=== PATIENT | female | born 1955 | race Asian ===

== ENCOUNTER 2021-04-28 21:12 | Emergency (ER) | payer OTHER, SELFPAY ==
--- NOTE | ~2021-04-28 | XR_ITS ---
EXAMINATION: XR ABDOMEN KUB CLINICAL INDICATION: Constipation COMPARISON: None TECHNIQUE: AP view of the abdomen. FINDINGS: Moderate volume of stool throughout the colon. No abnormally dilated bowel loop. Nonobstructive bowel pattern. Vascular calcification of the aorta. Marked levoscoliosis of lumbar spine and multilevel degenerative spondylosis. Status post right hip replacement. XR/XR KUB IMPRESSION: Moderate volume of stool throughout the colon. Nonobstructive bowel pattern.
[2021-04-28 21:21] VITALS: BP 160/100; BP 179/87; PULSE 70; PULSE 78; RESP 15; TEMP 37.5; O2SAT 96; O2SAT 97; BMI 18.8
[2021-04-28 23:21] LABS: MANUAL DIFF FLAG NO
[2021-04-28 23:22] LABS: Basophils Percent Auto 0.1 % (0-2); Eosinophils Percent Auto 0.1 % (0-4); Hematocrit 36.6 % (37-47); Hemoglobin 12.5 g/dl (12.0-16.0); Imm Gran Abs Auto 0.05 X10*3/uL (0.00-0.03); Imm Gran Pct Auto 0.4 % (0.0-0.4); Lymphocytes Absolute Auto 0.8 X10*3/uL (1.2-4.9); Lymphocytes Percent Auto 6.6 % (20-40); Mean Corpuscular HGB Conc 34.2 g/dl (31.0-35.0); Mean Corpuscular Hemoglobin 30.5 pg (27.0-33.0); Mean Corpuscular Volume 89.3 fL (80-98); Mean Platelet Volume 10.8 fL (9.4-12.3); Monocytes Absolute Auto 0.5 X10*3/uL (0.1-1.2); Monocytes Percent Auto 4.4 % (2-11); Neutrophils Absolute Auto 10.6 X10*3/uL (2.0-8.3); Neutrophils Percent Auto 88.4 % (45-73); Platelet Count 264 X10*3/uL (160-400); Red Cell Distribution Width 14.9 % (11.0-16.0)
--- NOTE | 2021-04-28 23:29 | ED_ITS ---
HPI - General Adult General Chief complaint: General Medical Stated complaint: General Med Time Seen by Provider: 04/28/21 22:48 Source: patient and EMS Mode of arrival: EMS History of Present Illness HPI narrative: 65-year-old female with a past medical history of major depressive disorder, PTSD, presenting to the ED from [facility] s/p having behavioral outburst. Patient reports she is very unhappy at [facility] and that is why she is here. Reports constipation, mild abdominal distension/discomfort, with last BM 1 week ago. Denies fever, chills, CP/SOB, cough, nausea/vomiting, dysuria/hematuria Related Data Home Medications Medication Instructions Recorded Confirmed aspirin 81 mg chewable tablet 81 mg PO DAILY 04/28/21 04/28/21 clonazepam 0.5 mg tablet 0.5 mg PO TID 04/28/21 04/28/21 dexamethasone 4 mg tablet 4 mg PO TID 04/28/21 04/28/21 (Decadron) docusate sodium 100 mg capsule 100 mg PO BID 04/28/21 04/28/21 (Colace) escitalopram oxalate 5 mg tablet 5 mg PO DAILY 04/28/21 04/28/21 (Lexapro) lisinopril 5 mg tablet 2.5 mg PO DAILY 04/28/21 04/28/21 meloxicam 15 mg tablet 15 mg PO DAILY 04/28/21 04/28/21 oxycodone 5 mg capsule 5 mg PO Q6H PRN 04/28/21 04/28/21 pantoprazole 40 mg tablet,delayed 40 mg PO BID 04/28/21 04/28/21 release (Protonix) polyethylene glycol 3350 17 17 g PO DAILY 04/28/21 04/28/21 gram/dose oral powder (Miralax) pregabalin 150 mg capsule (Lyrica) 150 mg PO TID 04/28/21 04/28/21 tizanidine 4 mg tablet 4 mg PO BID 04/28/21 04/28/21 Allergies Allergy/AdvReac Type Severity Reaction Status Date / Time No Known Allergies Allergy Unverified 04/28/21 22:57 Review of Systems Review of Systems: Constitutional: No Fever, No Chills, No Fatigue, No Malaise ENT/Mouth: No Ear Pain, No Nasal Congestion, No Sinus Pain, No sore throat Eyes: No Eye Pain, No Vision Changes Cardiovascular: No Chest Pain, No SOB, No Edema, No Palpitations Respiratory: No Cough, No Dyspnea Gastrointestinal: No Nausea, No Vomiting, No Diarrhea, + Constipation, +Abdominal pain Genitourinary: No Dysuria, No Urinary Frequency, No Hematuria Musculoskeletal: No joint pain, No Myalgias, No Joint Swelling Skin: No Skin Lesions, No rash Neuro: No Weakness, No Dizziness, No Headache Yes all other systems are reviewed and are negative [facility] Past Medical History Attestation statement: The following information was validated with the patient. Medical History (Updated 04/29/21 @ 01:56 by BELA Wolff) Major depressive disorder PTSD (post-traumatic stress disorder) Surgical History (Updated 04/28/21 @ 21:26 by Padmini Barr RN) Hip joint replacement status Social History Social History Advance Directives: No Advance Directives Information Provided: No Patient : No Physical Exam Vital Signs: Vital Signs: Last Vital Signs Temp 99.5 F 04/28/21 21:21 Pulse 78 04/28/21 21:21 Resp 15 04/28/21 21:21 BP 179/87 H 04/28/21 21:21 Pulse Ox 96 04/28/21 21:21 Body Mass Index 18.8 Const: General: cooperative, healthy appearing and no acute distress Orientation/consciousness: patient oriented x3 Limitations: no limitations HENMT: Head: Yes normal to inspection Ears: hearing grossly normal bilaterally General nose exam: Normal external nose present Face and sinus: Yes normal facial exam Eyes: General: appearance normal, both eyes and all related structures EOM: EOMs intact bilaterally Neck: Neck: Yes normal visual inspection and Yes no meningeal signs Resp: Effort & Inspection: normal respiratory effort Auscultation: clear to auscultation bilaterally, no rales, no rhonchi and no wheezes Cardio: Rate: regular rate Heart sounds: S1 normal heart sound present and S2 normal heart sound present GI: Inspection: Yes normal to inspection Palpation (GI): Soft to palpation, nontender, no guarding and not rigid Skin: Wounds: no wounds Neuro: General: patient oriented x3 and no meningeal signs Gait exam (Neuro): Normal gait present Extrem: General: Yes normal to inspection and Yes no pedal edema Course Course Course Narrative: -mild leukocytosis of 12, sodium low at 130 > likely from dehydration, 1 L IVF ordered. - BUN 23, labs otherwise unremarkable XR KUB IMPRESSION: Moderate volume of stool throughout the colon. Nonobstructive bowel pattern. > Senna ordered -0154--954 cc observed on bladder scan > patient successfully urinated on bedpan -0200--ED care transferred to Dr. Roblero pending UA, PT and Case management evaluation Medical Decision Making MDM Narrative Medical decision making narrative: 65-year-old female with a past medical history of major depressive disorder, PTSD, presenting to the ED from [facility] s/ having behavioral outburst. On exam VSS, NAD/well-appearing, physical exam as above. Rule out all infectious/metabolic etiology including SBO vs constipation. Will need case management/PT eval Plan: Labs, UA, KUB, PT/case management Lab Data Result diagrams: 04/28/21 23:16 04/28/21 23:16 Labs: Lab Results 04/28/21 04/28/21 04/28/21 Range/Units 23:16 23:16 23:16 WBC 12.0 H (4.8-10.8) X10*3/uL RBC 4.10 L (4.20-5.50) X10*6/uL Hgb 12.5 (12.0-16.0) g/dl Hct 36.6 L (37-47) % MCV 89.3 (80-98) fL MCH 30.5 (27.0-33.0) pg MCHC 34.2 (31.0-35.0) g/dl RDW 14.9 (11.0-16.0) % Plt Count 264 (160-400) X10*3/uL MPV 10.8 (9.4-12.3) fL Immature Gran % (Auto) 0.4 (0.0-0.4) % Neut % (Auto) 88.4 H (45-73) % Lymph % (Auto) 6.6 L (20-40) % [place] % (Auto) 4.4 (2-11) % Eos % (Auto) 0.1 (0-4) % Baso % (Auto) 0.1 (0-2) % Lymph # (Auto) 0.8 L (1.2-4.9) X10*3/uL [place] # (Auto) 0.5 (0.1-1.2) X10*3/uL Eos # (Auto) 0.0 (0.0-0.4) X10*3/uL Baso # (Auto) 0.0 (0.0-0.2) X10*3/uL Abs Immat Gran (auto) 0.05 H (0.00-0.03) X10*3/uL Absolute Neuts (auto) 10.6 H (2.0-8.3) X10*3/uL Absolute Nucleated RBC 0.000 (0.0-0.012) X10*3/uL Nucleated RBC % (auto) 0.0 (0.0-0.2) /100WBC Sodium 130 L (135-145) mmol/L Potassium 4.4 (3.3-5.1) mmol/L Chloride 100 (96-108) mmol/L Carbon Dioxide 19 L (22-29) mmol/L Anion Gap 15 (12-20) BUN 23 H (9-16) mg/dL Creatinine 0.82 (0.5-1.4) mg/dL Estim Creat Clear Calc 50.0 Estimated GFR > 60 Random Glucose 202 H (60-115) mg/dL Calcium 8.3 L (8.4-10.2) mg/dL Magnesium 2.3 (1.6-2.6) mg/dL Total Bilirubin 0.4 (0.0-1.0) mg/dL Direct Bilirubin < 0.2 (0.0-0.5) mg/dL AST 15 (5-31) U/L ALT 20 (0-31) U/L Alkaline Phosphatase 86 (39-117) U/L Total Protein 5.9 L (6.5-8.0) g/dL Albumin 3.7 (3.5-5.0) g/dL Lipase 53 (8-78) U/L Urine Color Urine Appearance Urine pH (5.0-8.0) Ur Specific [place] (1.005-1.025) Urine Protein (NEG-TRACE) MG/DL Urine Glucose (UA) (NEG) MG/DL Urine Ketones (NEG) MG/DL Urine Blood (NEG) Urine Nitrite (NEG) Ur Leukocyte Esterase (NEG) COVID-19 (KATHY) Negative (Negative) COVID-19 Clin Com See Note 04/29/21 Range/Units 02:00 WBC (4.8-10.8) X10*3/uL RBC (4.20-5.50) X10*6/uL Hgb (12.0-16.0) g/dl Hct (37-47) % MCV (80-98) fL MCH (27.0-33.0) pg MCHC (31.0-35.0) g/dl RDW (11.0-16.0) % Plt Count (160-400) X10*3/uL MPV (9.4-12.3) fL Immature Gran % (Auto) (0.0-0.4) % Neut % (Auto) (45-73) % Lymph % (Auto) (20-40) % [place] % (Auto) (2-11) % Eos % (Auto) (0-4) % Baso % (Auto) (0-2) % Lymph # (Auto) (1.2-4.9) X10*3/uL [place] # (Auto) (0.1-1.2) X10*3/uL Eos # (Auto) (0.0-0.4) X10*3/uL Baso # (Auto) (0.0-0.2) X10*3/uL Abs Immat Gran (auto) (0.00-0.03) X10*3/uL Absolute Neuts (auto) (2.0-8.3) X10*3/uL Absolute Nucleated RBC (0.0-0.012) X10*3/uL Nucleated RBC % (auto) (0.0-0.2) /100WBC Sodium (135-145) mmol/L Potassium (3.3-5.1) mmol/L Chloride (96-108) mmol/L Carbon Dioxide (22-29) mmol/L Anion Gap (12-20) BUN (9-16) mg/dL Creatinine (0.5-1.4) mg/dL Estim Creat Clear Calc Estimated GFR Random Glucose (60-115) mg/dL Calcium (8.4-10.2) mg/dL Magnesium (1.6-2.6) mg/dL Total Bilirubin (0.0-1.0) mg/dL Direct Bilirubin (0.0-0.5) mg/dL AST (5-31) U/L ALT (0-31) U/L Alkaline Phosphatase (39-117) U/L Total Protein (6.5-8.0) g/dL Albumin (3.5-5.0) g/dL Lipase (8-78) U/L Urine Color STRAW Urine Appearance HAZY Urine pH 6.0 (5.0-8.0) Ur Specific [place] <= 1.005 (1.005-1.025) Urine Protein NEG (NEG-TRACE) MG/DL Urine Glucose (UA) NEG (NEG) MG/DL Urine Ketones NEG (NEG) MG/DL Urine Blood TRACE (NEG) Urine Nitrite NEG (NEG) Ur Leukocyte Esterase 3+ H (NEG) COVID-19 (KATHY) (Negative) COVID-19 Clin Com Discharge Plan Discharge Clinical Impression: Constipation, Behavior concern Prescriptions: No Action meloxicam 15 mg Tablet 15 mg PO DAILY RF: 0 clonazepam 0.5 mg Tablet 0.5 mg PO TID RF: 0 pantoprazole [Protonix] 40 mg Tablet,Delayed Release (Dr/Ec) 40 mg PO BID RF: 0 dexamethasone [Decadron] 4 mg Tablet 4 mg PO TID RF: 0 oxycodone 5 mg Capsule 5 mg PO Q6H PRN (Reason: Pain (Scale Score 7-10)) RF: 0 docusate sodium [Colace] 100 mg Capsule 100 mg PO BID RF: 0 aspirin 81 mg Tablet,Chewable 81 mg PO DAILY RF: 0 lisinopril 5 mg Tablet 2.5 mg PO DAILY RF: 0 polyethylene glycol 3350 [Miralax] 17 gram/dose Powder 17 g PO DAILY RF: 0 tizanidine 4 mg Tablet 4 mg PO BID RF: 0 escitalopram oxalate [Lexapro] 5 mg Tablet 5 mg PO DAILY RF: 0 pregabalin [Lyrica] 150 mg Capsule 150 mg PO TID RF: 0
[2021-04-28 23:35] LABS: COVID-19 Test Negative (Negative); IDNOW Serial# 9DD0AD1C
--- NOTE | 2021-04-28 23:55 | PC.NURSE ---
PT REPORTS SHE NEEDS TO GO TO THE BATHROOM, AND NEEDS ASSISTANCE AND A WALKER TO AMBULATE. PT UNABLE TO SUPPORT WEIGHT AND UNABLE TO AMBULATE. PT UNABLE TO VOID, REPORTS SHE HAS NOT BEEN EATING OR DRINKING.
[2021-04-28 23:59] LABS: Alanine Aminotransferase 20 U/L (0-31); Albumin Level 3.7 g/dL (3.5-5.0); Alkaline Phosphatase 86 U/L (39-117); Anion Gap 15 (12-20); Aspartate Amino Transferase 15 U/L (5-31); Bilirubin Direct < 0.2 mg/dL (0.0-0.5); Bilirubin Total 0.4 mg/dL (0.0-1.0); Blood Urea Nitrogen 23 mg/dL (9-16); Calcium 8.3 mg/dL (8.4-10.2); Carbon Dioxide 19 mmol/L (22-29); Chloride 100 mmol/L (96-108); Estimated Glomerular Filt Rate > 60; Glucose Random 202 mg/dL (60-115); Lipase 53 U/L (8-78); Magnesium 2.3 mg/dL (1.6-2.6); Potassium 4.4 mmol/L (3.3-5.1); Sodium 130 mmol/L (135-145); Total Protein 5.9 g/dL (6.5-8.0)
--- NOTE | 2021-04-29 00:19 | PC.NURSE ---
PT REQUESTED AND WAS GIVEN WATER, NO TROUBLE SWALLOWING, PT DENIES NAUSEA. WILL OBTAIN BLADDER SCAN ONCE PT IN A ROOM. PT CURRENTLY IN A HALLWAY BED.
[2021-04-29 02:10] LABS: Glucose Urine UA NEG (NEG); Leukocyte Esterase Urine 3+ (NEG); Nitrite Urine NEG (NEG); Specific Gravity - Urine <= 1.005 (1.005-1.025); UACC Culture Trigger YES; Urine Blood TRACE (NEG); Urine Ketones NEG (NEG); Urine Protein NEG (NEG-TRACE)
[2021-04-29 02:12] LABS: Appearance Urine HAZY; Color Urine STRAW
--- NOTE | 2021-04-29 02:24 | PC.NURSE ---
PT ABLE TO VOID INTO BEDPAN 600ML. PT TRANSFERRED INTO A HOSPITAL BED FOR COMFORT.
[2021-04-29 02:31] LABS: Bacteria Urine 2+ /LPF; Mucus Urine TRACE /LPF; Squamous Epithelial Cell Urine TRACE /LPF
[2021-04-29] MEDS: 0.9 % Sodium Chloride 1,000 ML 999 ML IVCONT (02:44)
[2021-04-29 03:31] VITALS: BP 167/82; PULSE 69; RESP 15; TEMP 36.7; O2SAT 96
--- NOTE | 2021-04-29 03:35 | PC.NURSE ---
This RN assuming care of pt at this time, rec'd report from Sita Mccabe RN. Pt aaox4, resting on stretcher in NAD. Pt transferred to via sheet draw without incidence. Purewick placed. Pt c/o generalized body aches from my fall. Pt without any nonverbal indicators of pain. Pt IVF infusing appropriately. Pt with red fall prevention socks on, red fall wristband and red falling star posted outside of room. HB in low locked position with rails raised, call alanis within reach, bed alarm active and audible.
[2021-04-29] MEDS: cephALEXin 500 MG CAPSULE PO ×4 (03:42→21:04)
--- NOTE | 2021-04-29 04:08 | PC.NURSE ---
SPOKE WITH STAFF FROM SNF, THEY WERE REQUESTING AN UPDATE. STAFF REPORTS THAT PT WAS MOVED FROM HER ROOM TO UPPER FLOOR/TANK FARM OPERATOR CARE. PT WAS MOVED TO MAKE ROOM FOR ISOLATION UNIT. PT WAS UPSET ABOUT THE MOVE. PT NORMALLY TRANSFERS TO TO USE BATHROOM. PT HAS HAS A CHANGE IN PERSONALITY OVER THE PAST SEVERAL DAYS. PT IS WELCOME BACK AT [facility]. [phone].
[2021-04-29] MEDS: oxyCODONE HCl Immed Release 5 MG TABLET PO ×3 (05:35→21:03)
--- NOTE | 2021-04-29 06:26 | PC.NURSE ---
Pt found to be soiled with urine despite purewick having previously been placed. Purewick removed, incontinence care provided. pt repositioned onto R side to offload from back. Pt reports increased comfort in new position. pt bed in lowest locked position, rails raised, call alanis within reach.
[2021-04-29] MEDS: Omeprazole 20 MG CAPSULE.DR PO (06:48)
[2021-04-29 07:55] VITALS: BP 170/81; PULSE 63; RESP 16; O2SAT 100
[2021-04-29 08:19] VITALS: BP 170/81; PULSE 63
[2021-04-29] MEDS: Escitalopram Oxalate 5 MG TABLET PO (08:19)
[2021-04-29] MEDS: lisinopriL 2.5 MG TABLET PO (08:19)
[2021-04-29] MEDS: clonazePAM 0.5 MG TABLET PO ×3 (08:19→21:04)
[2021-04-29] MEDS: dexAMETHasone 4 MG TABLET PO ×3 (08:19→21:03)
[2021-04-29] MEDS: Docusate Sodium 100 MG CAPSULE PO ×2 (08:19→21:04)
[2021-04-29] MEDS: Aspirin 81 MG TAB.CHEW PO (08:19)
[2021-04-29] MEDS: TiZANidine HCL 4 MG TABLET PO ×2 (08:19→21:03)
[2021-04-29] MEDS: polyethylene glycoL 3350 17 GM POWD.PACK PO (08:20)
[2021-04-29 08:58] LABS: Amphetamine Screen Urine Not Detected (Not Detect); Barbiturates, Urine Not Detected (Not Detect); Benzodiazepines Screen Urine Not Detected (Not Detect); Cannabinoid Screen Urine Not Detected (Not Detect); Cocaine Screen Urine Not Detected (Not Detect); Fentanyl, urine Not Detected (Not Detect); Opiate Screen Urine Not Detected (Not Detect); Phencyclidine Screen Urine Not Detected (Not Detect)
[2021-04-29 09:12] VITALS: BP 170/81; PULSE 63
[2021-04-29] MEDS: Pregabalin 150 MG CAPSULE PO ×3 (09:54→21:03)
--- NOTE | 2021-04-29 11:34 | PC.NURSE ---
patient a&o, calm/compliant, pt watching tv, no complaints offered at this time, will continue to monitor.
[2021-04-29] MEDS: LORazepam 2 MG/ML VIAL 1 MG IVPUSH (13:05)
[2021-04-29 14:00] VITALS: BP 122/71; PULSE 65; RESP 17; TEMP 36.7; O2SAT 97
--- NOTE | 2021-04-29 14:44 | PC.NURSE ---
patient a&o, c/o neck pain but has decreased since taking po meds, pt also stated her anxiety was a little better after having the ativan. pt took po medications with water, complete bed change performed- pt incontinent of urine and bowel. pt encouraged to ring call alanis if she needs to urinate. vitals stable, will continue to monitor.
--- NOTE | 2021-04-29 15:19 | MHC.CM.PN ---
refs have been made to snf's in the [facility] and [facility] per patient's request. she does not [facility] to [facility] or go to [facility], the idea of these placements is upsetting to her. a PT eval today did recommend STR. pt has consideration from [facility] and [facility]. however, pt will need auth and likely a pasrr exemption letter . both of these snf's are telling me via allscripts that patient will not be able to trnfr until saturday d/t auth and pasrr. r.n, p.a., and patient are aware of this situation. cm to cont. to follow.
[2021-04-29 21:02] VITALS: BP 172/85; PULSE 74; RESP 16; O2SAT 100
[2021-04-29] MEDS: Melatonin 3 MG TABLET 15 MG PO (21:04)
--- NOTE | 2021-04-29 21:07 | PC.NURSE ---
Medicated per MAR. VSS. Continue to monitor.
--- NOTE | 2021-04-30 00:16 | PC.NURSE ---
Pt incontinent of a large loose BM. Pt provided lucian care and a complete bed change. Pt provided with food/drink per request. Purewick in place. Continue to monitor.
[2021-04-30 00:17] VITALS: RESP 16
--- NOTE | 2021-04-30 04:00 | PC.NURSE ---
Pt calling this RN into room, states she was incontinent of urine/stool. Pt provided with lucian care and a complete bed change, assisted into POC. Provided with fresh water per request. Medicated with ABX per NOV. Call alanis within reach.
[2021-04-30] MEDS: cephALEXin 500 MG CAPSULE PO ×4 (04:25→20:45)
[2021-04-30 04:35] VITALS: BP 176/79; PULSE 56; RESP 16
[2021-04-30] MEDS: Omeprazole 20 MG CAPSULE.DR PO (07:20)
[2021-04-30] MEDS: oxyCODONE HCl Immed Release 5 MG TABLET PO ×2 (07:27→15:18)
--- NOTE | 2021-04-30 07:34 | PC.NURSE ---
pt alert, pt medicated with her oxycodone upon request, reports pain all over to be 9/10 at this time pt set up with her breakfast stevie and 1500 of yellow urine emptied out of her suction canister
[2021-04-30 09:34] VITALS: BP 154/79; PULSE 70; RESP 18; O2SAT 99
[2021-04-30 09:36] VITALS: BP 154/79; PULSE 70
[2021-04-30] MEDS: Aspirin 81 MG TAB.CHEW PO (09:36)
[2021-04-30] MEDS: lisinopriL 2.5 MG TABLET PO (09:36)
[2021-04-30] MEDS: clonazePAM 0.5 MG TABLET PO ×3 (09:36→20:46)
[2021-04-30] MEDS: polyethylene glycoL 3350 17 GM POWD.PACK PO (09:36)
[2021-04-30] MEDS: TiZANidine HCL 4 MG TABLET PO ×2 (09:37→20:46)
[2021-04-30] MEDS: Escitalopram Oxalate 5 MG TABLET PO (09:37)
[2021-04-30] MEDS: Pregabalin 150 MG CAPSULE PO ×3 (09:37→20:46)
[2021-04-30] MEDS: dexAMETHasone 4 MG TABLET PO ×3 (09:37→20:46)
[2021-04-30] MEDS: Docusate Sodium 100 MG CAPSULE PO (09:37)
--- NOTE | 2021-04-30 10:35 | PC.NURSE ---
pt incontinent of urine and small amount of stool, pt given a full bed bath, lotion applied, and hair brushed. new bed linens applied as well
--- NOTE | 2021-04-30 11:31 | PC.NURSE ---
Pt sitting upright in bed. assisted to use phone. change of lunch order. is axox3. states she's been drinking alot to avoid dehydration. 1100 urine emptied from vacutainer. no compants at this time. falls precautions in effect.
[2021-04-30 14:00] VITALS: BP 154/81; PULSE 62; RESP 18; TEMP 36.4; O2SAT 98
[2021-04-30] MEDS: Nicotine Polacrilex Lozenge 2 MG LOZENGE BUCCAL (16:37)
--- NOTE | 2021-04-30 19:57 | PC.NURSE ---
pt cleansed of very large loose stool. stated she didn't ring for bedpan because i was eating . pt has poor bed mobility but is a one person assist for turning etc. bony coccyx is blanchable pink/red. barrier cream applied and positioned right side lying.
[2021-04-30 20:43] VITALS: BP 93/60; PULSE 70; RESP 16; TEMP 36.8; O2SAT 92
[2021-04-30] MEDS: Melatonin 3 MG TABLET 15 MG PO (20:45)
[2021-04-30] MEDS: Nicotine Polacrilex 2 MG GUM BUCCAL (22:48)
[2021-05-01] MEDS: cephALEXin 500 MG CAPSULE PO ×4 (05:12→22:54)
[2021-05-01] MEDS: Nicotine Polacrilex Lozenge 2 MG LOZENGE BUCCAL ×2 (05:12→23:18)
--- NOTE | 2021-05-01 05:23 | PC.NURSE ---
PT INCONTINENT OF URINE AND SOFT STOOL. PT CLEANED AND LINEN CHANGED. PT REQUESTED TO USE BED BOLAÑOS. PT ABLE TO VOID, AND HAD ANOTHER BM. PUREWICK CHANGED.
[2021-05-01 07:19] VITALS: BP 132/71; PULSE 60; RESP 16; TEMP 36.8; O2SAT 98
[2021-05-01 08:01] LABS: Anion Gap 13 (12-20); Blood Urea Nitrogen 29 mg/dL (9-16); Calcium 8.4 mg/dL (8.4-10.2); Carbon Dioxide 20 mmol/L (22-29); Chloride 103 mmol/L (96-108); Creatinine Clr Calc Pharmacy 60.3; Estimated Glomerular Filt Rate > 60; Glucose Random 123 mg/dL (60-115); Potassium 4.5 mmol/L (3.3-5.1); Sodium 131 mmol/L (135-145)
[2021-05-01 08:26] VITALS: BP 132/71; PULSE 60
[2021-05-01] MEDS: lisinopriL 2.5 MG TABLET PO (08:26)
[2021-05-01] MEDS: clonazePAM 0.5 MG TABLET PO ×3 (08:26→22:54)
[2021-05-01] MEDS: Docusate Sodium 100 MG CAPSULE PO (08:26)
[2021-05-01] MEDS: Escitalopram Oxalate 5 MG TABLET PO (08:26)
[2021-05-01] MEDS: Aspirin 81 MG TAB.CHEW PO (08:26)
[2021-05-01] MEDS: TiZANidine HCL 4 MG TABLET PO ×2 (08:26→22:54)
[2021-05-01] MEDS: Omeprazole 20 MG CAPSULE.DR PO (08:26)
[2021-05-01] MEDS: dexAMETHasone 4 MG TABLET PO ×3 (08:26→22:54)
[2021-05-01] MEDS: Pregabalin 150 MG CAPSULE PO ×3 (08:27→22:54)
[2021-05-01] MEDS: polyethylene glycoL 3350 17 GM POWD.PACK PO (08:27)
--- NOTE | 2021-05-01 10:12 | MHC.CM.ED ---
Patient remains in ER. Per Marian Conde, patient was admitted to their facility in February for STR. Patient is a bedhold there. Patient has not received any Covid vaccinations. Clinical updates sent to Ivonne burnett [facility] and Nancie. PASRR screen faxed to [facility]. Continue to monitor for d/c needs.
--- NOTE | 2021-05-01 11:57 | MHC.CM.ED ---
Patient states she received 2 Covid vaccines at her half-way apartment. Per housing, patient received Moderna on 11/23 and 12/21. Continue to monitor for d/c needs.
[2021-05-01 14:14] VITALS: BP 101/58; PULSE 65; RESP 16; TEMP 37.1; O2SAT 100
--- NOTE | 2021-05-01 14:45 | PC.NURSE ---
PT CHANGED AND REPOSITIONED NEEDED , TOLERATED PO. PT NEEDS BEING MET WAITING ON CASEMANAGEMENT AND SNF PLACEMENT
[2021-05-01 16:18] VITALS: BP 112/61; PULSE 65; RESP 18; O2SAT 99
--- NOTE | 2021-05-01 16:20 | PC.NURSE ---
incontinent of urine. Chamged and repositioned, stage II pressure ulcer noted to left buttocks
--- NOTE | 2021-05-01 20:15 | PC.NURSE ---
This RN and Summer, PCT changed linens and repositioned pt s/p episode of urinary incontinence. Pt given sandwich, crackers, and juice. Assisted w/ feeding set up. Updated on POC. Call light within reach, denies further needs at this time
[2021-05-01 22:36] VITALS: BP 99/54; PULSE 61; RESP 16; TEMP 37; O2SAT 97
--- NOTE | 2021-05-01 22:38 | PC.NURSE ---
incontinence care provided, BM x 1, linens and gown changed, pt turned to R side, given additional crackers and perfecto alvina
[2021-05-01] MEDS: Melatonin 3 MG TABLET 15 MG PO (22:55)
--- NOTE | 2021-05-02 01:47 | PC.NURSE ---
pt w/ episode of stool incontinence, linens changed, lucian care provided. Purewick replaced
[2021-05-02] MEDS: cephALEXin 500 MG CAPSULE PO ×3 (05:28→15:06)
[2021-05-02] MEDS: Omeprazole 20 MG CAPSULE.DR PO (05:30)
[2021-05-02 05:50] VITALS: BP 134/75; PULSE 62; RESP 18; TEMP 37; O2SAT 97
[2021-05-02] MEDS: Nicotine Polacrilex Lozenge 2 MG LOZENGE BUCCAL ×2 (07:43→15:10)
[2021-05-02 08:00] VITALS: BP 164/78; PULSE 61
[2021-05-02] MEDS: clonazePAM 0.5 MG TABLET PO ×2 (08:00→15:06)
[2021-05-02] MEDS: Pregabalin 150 MG CAPSULE PO ×2 (08:00→15:06)
[2021-05-02] MEDS: Escitalopram Oxalate 5 MG TABLET PO (08:00)
[2021-05-02] MEDS: lisinopriL 2.5 MG TABLET PO (08:00)
[2021-05-02] MEDS: oxyCODONE HCl Immed Release 5 MG TABLET PO ×2 (08:00→15:07)
[2021-05-02] MEDS: TiZANidine HCL 4 MG TABLET PO (08:01)
[2021-05-02] MEDS: Aspirin 81 MG TAB.CHEW PO (08:01)
[2021-05-02] MEDS: dexAMETHasone 4 MG TABLET PO ×2 (08:01→15:07)
[2021-05-02 08:05] VITALS: BP 164/78; PULSE 61; RESP 18; O2SAT 95
--- NOTE | 2021-05-02 08:15 | PC.NURSE ---
assumed care of patient at 0700 patient given breakfast and ate approximately 90% of her breakfast. after eating her breakfast she was found to be incontinent of urine and stool and with help of fuel cell technician she was changed into new hospital clothing and new sheets were placed on the hospital bed. patients basic ADLs performed including skin care and hair care. small stage 2 noted on her coccyx- per pt this is old. patient assisted with use of phone and call alanis within reach.
--- NOTE | 2021-05-02 09:07 | MHC.CM.ED ---
Patient remains in the ER. [facility] is willing to offer a bed. Patient is agreeable. [facility] will have to transfer insurance auth to their faciilty before patient can leave. Continue to monitor for d/c needs.
--- NOTE | 2021-05-02 12:06 | PC.NURSE ---
patient incontinent of stool and urine for 3rd time today, with help of optics test technician patient cleaned, new hospital gown placed on the patient and bed sheets changed
--- NOTE | 2021-05-02 14:10 | MHC.CM.ED ---
Insurance auth has been obtained by [facility]. Patient can leave at 4pm. [facility] booked. Med nec with chart. Patient, Jenifer LARES and Kourtney CRAMER aware. Continue to monitor for d/c needs.
[2021-05-02 16:13] VITALS: BP 113/65; PULSE 71; RESP 16; TEMP 37; O2SAT 96
== END 2021-05-02 17:09 | disposition skilled nursing facility (03) ==
PROVIDERS: Emergency Medicine; Physician Assistant; Emergency Provider Student in an Organized Health Care Education/Training Program
DX: K59.00 Constipation, unspecified (principal); F91.9 Conduct disorder, unspecified; N39.0 Urinary tract infection, site not specified; L89.152 Pressure ulcer of sacral region, stage 2; Z20.822 Contact with and (suspected) exposure to COVID-19; F43.10 Post-traumatic stress disorder, unspecified; F32.9 Major depressive disorder, single episode, unspecified; Z72.89 Other problems related to lifestyle; Z79.899 Other long term (current) drug therapy
CPT/HCPCS: 36415; 51798; 74018; 80048; 80076; 80307; 81001; 83690; 83735; 85025; 87086; 87088; 87186; 87635; 96361; 96374; 97162; 99285; J2060; J8540